=== PATIENT | male | born 1945 | race Caucasian/White ===

== ENCOUNTER 2023-10-31 11:06 | Emergency (ER) | payer MEDICARE ==
[2023-10-31 12:17] LABS: Appearance,Urine Clear (Clear); Bilirubin,Urine Negative (Negative); Blood,Urine Negative (Negative); Color,Urine Colorless; Glucose,Urine (UA) 4+ (Negative); Ketones,Urine Negative (Negative); Leukocyte Esterase,Urine Negative (Negative); Nitrite,Urine Negative (Negative); PH, Urine 5.5 (5.0-8.0); Protein,Urine Negative (Negative); Specific Gravity,Urine 1.022 (1.001-1.035); Urobilinogen,Urine <2.0 mg/dL (<2.0)
--- NOTE | 2023-10-31 12:32 | ED ---
Male Urogenital HPI - General Chief complaint: Urogenital Stated complaint: Unable to urinate Time Seen by Provider: 10/31/23 11:48 Source: patient, RN notes reviewed Mode of arrival: ambulatory Limitations: no limitations - History of Present Illness Initial comments: This is a 77-year-old male who presents to the emergency department for urinary symptoms. States that he was unable to urinate for the last couple of hours and had discomfort in his abdomen. However, when he got to the emergency department he was able to urinate to some extent. States that his urine seemed darker than usual. Patient has a history of chronic kidney disease and last had blood work done about a week ago. Denies any burning with urination. He does note that he did not sleep well last night and wonders if that may also be contributing to his symptoms. - Related Data Previous Rx's Medication Instructions Recorded Tamsulosin [Flomax] 0.4 mg PO DAILY #30 cap 10/31/23 Allergies Allergy/AdvReac Type Severity Reaction Status Date / Time Penicillins AdvReac Dyspnea Verified 10/31/23 11:45 Review of Systems ROS Statement: Those systems with pertinent positive or pertinent negative responses have been documented in the HPI. ROS Other: All systems not noted in ROS Statement are negative. Past Medical History Past Medical History: Diabetes Mellitus, Hyperlipidemia, Hypertension History of Any Multi-Drug Resistant Organisms: None Reported Past Surgical History: No Surgical Hx Reported Smoking Status: Former smoker Past Alcohol Use History: None Reported Past Drug Use History: None Reported General Exam Limitations: no limitations General appearance: alert, in no apparent distress Head exam: Present: atraumatic, normocephalic, normal inspection Respiratory exam: Present: normal lung sounds bilaterally. Absent: respiratory distress, wheezes, rales, rhonchi, stridor Cardiovascular Exam: Present: regular rate, normal rhythm, normal heart sounds. Absent: systolic murmur, diastolic murmur, rubs, gallop, clicks GI/Abdominal exam: Present: soft, normal bowel sounds. Absent: distended, tenderness, guarding, rebound, rigid Back exam: Absent: CVA tenderness (R), CVA tenderness (L) Neurological exam: Present: alert, oriented X3, CN II-XII intact Psychiatric exam: Present: normal affect, normal mood Skin exam: Present: warm, dry, intact, normal color. Absent: rash Course Vital Signs 10/31/23 10/31/23 11:40 13:43 Temperature 97.7 F 98.1 F Pulse Rate 69 68 Respiratory 16 18 Rate Blood Pressure 106/62 111/78 O2 Sat by Pulse 97 98 Oximetry Medical Decision Making - Medical Decision Making This is a 77 year old male who presents to the emergency department for urinary retention. Was pt. sent in by a medical professional or institution? @ -No Did you speak to anyone other than the patient for history? @ -No Did you review nursing and triage notes? @ -Yes, and I agree, it is accurate with regards to the patient's symptoms. Were old charts reviewed? @ -No Differential Diagnosis? @ -Differential Urinary Retention: UTI, BPH, ureteral calculus, this is not meant to be an all-inclusive list. EKG interpreted by me (3pts min.)? @ -Not obtained X-rays interpreted by me (1pt min.)? @ -Not obtained CT interpreted by me (1pt min.)? @ -Not obtained U/S interpreted by me (1pt. min.)? @ -Not obtained What testing was considered but not performed? (CT, X-rays, U/S, labs)? Why? @ -None What meds were considered but not given? Why? @ -None Did you discuss the management of the patient with other professionals? @ -No Did you reconcile home meds? @ -No Was smoking cessation discussed for >3mins.? @ -No Was critical care preformed (if so, how long)? @ -No Were there social determinants of health that impacted care today? How? (Homelessness, low income, unemployed, alcoholism, drug addiction, transportation, low edu. Level, literacy, decrease access to med. care, assisted, rehab)? @ -No Was there de-escalation of care discussed even if they declined? (Discuss DNR or withdrawal of care, Hospice)? @ -No What co-morbidities impacted this encounter? (DM, HTN, Smoking, COPD, CAD, Cancer, CVA, Hep., AIDS, mental health diagnosis, sleep apnea, morbid obesity)? @ -CKD, DM Was patient admitted / discharged? @ -Discharged. After the patient had gone to the emergency department, he was able to urinate on his own without difficulty. Urinalysis negative for signs of infection. Bladder scan performed and postvoid residual was 101 mL. Prescription for Flomax provided with dosing instructions reviewed for potential BPH component. Otherwise advised follow-up with his primary care provider. Undiagnosed new problem with uncertain prognosis? @ -None Drug Therapy requiring intensive monitoring for toxicity (Heparin, Nitro, Insulin, Cardizem)? @ -None Were any procedures done? @ -None Diagnosis/symptom? @ -Urinary difficulties Acute, or Chronic, or Acute on Chronic? @ -Acute Uncomplicated (without systemic symptoms) or Complicated (systemic symptoms)? @ -Uncomplicated Side effects of treatment? @ -None Exacerbation, Progression, or Severe Exacerbation] @ -Not applicable Poses a threat to life or bodily function? @ -No Return precautions reviewed in depth, the patient is instructed to return to the emergency department with any new, worsening, or concerning symptoms. Patient verbalized understanding. This case was discussed in detail with the attending ED physician, Dr. Quiles. Presentation, findings, and treatment plan discussed in detail as well. - Lab Data Lab Results 10/31/23 Range/Units 12:04 Urine Color Colorless Urine Appearance Clear (Clear) Urine pH 5.5 (5.0-8.0) Ur Specific [place] 1.022 (1.001-1.035) Urine Protein Negative (Negative) Urine Glucose (UA) 4+ H (Negative) Urine Ketones Negative (Negative) Urine Blood Negative (Negative) Urine Nitrite Negative (Negative) Urine Bilirubin Negative (Negative) Urine Urobilinogen <2.0 (<2.0) mg/dL Ur Leukocyte Esterase Negative (Negative) Disposition Clinical Impression: Urinary problem Disposition: HOME SELF-CARE Instructions (If sedation given, give patient instructions): Tamsulosin (By mouth) Additional Instructions: Return to the emergency department with any new, worsening, or concerning symptoms. Begin taking the Flomax once daily if you are not already taking it. Follow up with your primary care provider in 1-2 days. Prescriptions: Tamsulosin [Flomax] 0.4 mg PO DAILY #30 cap Is patient prescribed a controlled substance at d/c from ED?: No Referrals: Tamra Pedro DO [Primary Care Provider] - 1-2 days Time of Disposition: 13:34
[2023-10-31 13:45] VITALS: BP 111/78; PULSE 68; RESP 18; TEMP 98.1
== END 2023-10-31 13:45 | disposition home or self-care (01) ==
LOC: EC 11:06
DX: R33.9 Retention of urine, unspecified (principal); I12.9 Hypertensive chronic kidney disease with stage 1 through stage 4 chronic kidney disease, or unspecified chronic kidney disease; E11.22 Type 2 diabetes mellitus with diabetic chronic kidney disease; N18.9 Chronic kidney disease, unspecified; Z88.0 Allergy status to penicillin; Z87.891 Personal history of nicotine dependence
CPT/HCPCS: 51798; 81003; 99284

== ENCOUNTER 2024-02-09 09:37 | Emergency (ER) | payer MEDICARE ==
[2024-02-09 10:02] VITALS: TEMP 97.8
--- NOTE | 2024-02-09 10:34 | ED ---
Extremity Problem HPI - General Source: patient, RN notes reviewed Mode of arrival: ambulatory Limitations: no limitations <Cee Dennison - Last Filed: 02/09/24 10:33> <Isabel Joseph - Last Filed: 02/10/24 11:25> - General Chief complaint: Weakness Stated complaint: Numbness, weakness Time Seen by Provider: 02/09/24 10:05 - History of Present Illness Initial comments: Quick Note: This is an 78-year-old male who presents to the emergency department for right arm pain. States that it started 3 weeks ago. Denies any injuries. States that the pain is in the right biceps area. Pain does not radiate. States that because of the pain, it makes him feel weak and he has difficulty moving his arm. He has tried taking Tylenol without relief in symptoms. (Cee Dennison) 78-year-old male presents emergency department company by his with chief complaint of right arm pain that is intermittent in nature and has been ongoing since the beginning of November. He denies any known injuries or trauma to the area. He experiences migratory joint pain with some days having hip, knee, wrist, shoulder pain that is both on the right and left side. Patient states that this morning his right arm pain worsened. Patient has been following with his primary care provider outpatient for this. He feels like the pain in his arm is making him weak. Has attempted to take Tylenol at home with minimal relief (Isabel Joseph) - Related Data Previous Rx's Medication Instructions Recorded Tamsulosin [Flomax] 0.4 mg PO DAILY #30 cap 10/31/23 Allergies Allergy/AdvReac Type Severity Reaction Status Date / Time Penicillins AdvReac Dyspnea Verified 02/09/24 10:02 Review of Systems ROS Other: All systems not noted in ROS Statement are negative. <Cee Dennison - Last Filed: 02/09/24 10:33> ROS Other: All systems not noted in ROS Statement are negative. <Isabel Joseph - Last Filed: 02/10/24 11:25> ROS Statement: Those systems with pertinent positive or pertinent negative responses have been documented in the HPI. Past Medical History Past Medical History: Diabetes Mellitus, Hyperlipidemia, Hypertension History of Any Multi-Drug Resistant Organisms: None Reported Past Surgical History: No Surgical Hx Reported Past Psychological History: No Psychological Hx Reported Smoking Status: Former smoker Past Alcohol Use History: None Reported Past Drug Use History: None Reported <Cee Dennison - Last Filed: 02/09/24 10:33> General Exam Limitations: no limitations <Cee Dennison - Last Filed: 02/09/24 10:33> General appearance: alert, in no apparent distress Head exam: Present: atraumatic, normocephalic, normal inspection Eye exam: Present: normal appearance, PERRL, EOMI. Absent: scleral icterus, conjunctival injection, periorbital swelling ENT exam: Present: normal exam, mucous membranes moist Neck exam: Present: normal inspection. Absent: tenderness, meningismus, lymphadenopathy Respiratory exam: Present: normal lung sounds bilaterally. Absent: respiratory distress, wheezes, rales, rhonchi, stridor Cardiovascular Exam: Present: regular rate, normal rhythm, normal heart sounds. Absent: systolic murmur, diastolic murmur, rubs, gallop, clicks GI/Abdominal exam: Present: soft, normal bowel sounds. Absent: distended, tenderness, guarding, rebound, rigid Right Upper Arm exam: Present: normal inspection, full ROM, tenderness (anterior arm). Absent: swelling, abrasion, laceration, ecchymosis, crepidus, dislocation Vascular: Present: normal capillary refill, radial pulse (2+). Absent: vascular compromise Back exam: Present: normal inspection Neurological exam: Present: alert, oriented X3, CN II-XII intact <Isabel Joseph - Last Filed: 02/10/24 11:25> - General Exam Comments Initial Comments: Visual Physical Exam Vital signs reviewed General: Well-appearing, nontoxic, no acute distress. Head: Normocephalic, atraumatic Eyes: PERRLA, EOMI ENT: Airway patent Chest: Nonlabored breathing Skin: No visual rash, normal skin tone Neuro: Alert and oriented 3 Musculoskeletal: No gross abnormalities (Cee Dennison) Course Vital Signs 02/09/24 02/09/24 02/09/24 09:57 11:30 12:36 Temperature 97.8 F Pulse Rate 78 75 78 Respiratory 18 16 16 Rate Blood Pressure 121/67 158/76 163/82 O2 Sat by Pulse 98 99 99 Oximetry 02/09/24 12:51 Temperature Pulse Rate 78 Respiratory 16 Rate Blood Pressure 150/73 O2 Sat by Pulse 98 Oximetry Medical Decision Making <Cee Dennison - Last Filed: 02/09/24 10:33> <Isabel Joseph - Last Filed: 02/10/24 11:25> - Medical Decision Making I performed the QuickNote portion of this chart. Signed Cee Dennison PA-C. (Cee Dennison) Was pt. sent in by a medical professional or institution ([facility], PEN AND PENCIL REPAIRER, urgent care, hospital, or group home...) When possible be specific @ -No Did you speak to anyone other than the patient for history (EMS, parent, family, police, friend...)? What history was obtained from this source @ -I spoke to the patient's at bedside states the patient has been evaluated outpatient by his primary care provider. states that "sometimes you just need to come into the ER to figure out what is going on" Did you review nursing and triage notes (agree or disagree)? Why? @ -I reviewed and agree with nursing and triage notes Were old charts reviewed (outside hosp., previous admission, EMS record, old EKG, old radiological studies, urgent care reports/EKG's, group home records)? Report findings @ -No old charts were reviewed Differential Diagnosis (chest pain, altered mental status, abdominal pain women, abdominal pain men, vaginal bleeding, weakness, fever, dyspnea, syncope, headache, dizziness, GI bleed, back pain, seizure, CVA, palpatations, mental health, musculoskeletal)? @ -Differential Musculoskeletal Muscular strain, contusion, ligament sprain, fracture, arthritis, septic arthritis, bursitis, cellulitis, muscle spasm, nerve compression, DVT, arterial occlusion, herpes zoster, electrolyte abnormality, tumor.... This is not meant to be in all inclusive list EKG interpreted by me (3pts min.). @ -None X-rays interpreted by me (1pt min.). @ X-ray of the right humerus negative for acute osseous abnormality. CT interpreted by me (1pt min.). @ -None done U/S interpreted by me (1pt. min.). @ -None done What testing was considered but not performed or refused? (CT, X-rays, U/S, labs)? Why? @ -None What meds were considered but not given or refused? Why? @ -None Did you discuss the management of the patient with other professionals (professionals i.e. , PA, PEN AND PENCIL REPAIRER, lab, RT, psych nurse, social human services assistants, cobol engineer, teacher, chief sustainability officer, housing case manager)? Give summary @ -No Was smoking cessation discussed for >3mins.? @ -No Was critical care preformed (if so, how long)? @ -No Were there social determinants of health that impacted care today? How? (Homelessness, low income, unemployed, alcoholism, drug addiction, transportation, low edu. Level, literacy, decrease access to med. care, penitentiary, rehab)? @ -No Was there de-escalation of care discussed even if they declined (Discuss DNR or withdrawal of care, Hospice)? DNR status @ -No What co-morbidities impacted this encounter? (DM, HTN, Smoking, COPD, CAD, Cancer, CVA, ARF, Chemo, Hep., AIDS, mental health diagnosis, sleep apnea, morbid obesity)? @ -None Was patient admitted / discharged? Hospital course, mention meds given and route, prescriptions, significant lab abnormalities, going to OR and other pertinent info. @ -Discharged. 78-year-old male with right arm pain. Patient was originally evaluated as a quick note where x-rays were ordered. On my evaluation of the patient vitals are stable and he is resting comfortably. Patient has pain to palpation over the right bicep with no obvious deformities, ecchymosis, muscle wasting. Patient has passive range of motion and states that active range of motion elicits pain to the right bicep. Neurological exam no acute deficits. Patient's x-ray is negative for acute process. Patient is provided with pain medication and instructed to follow-up outpatient with primary care provider as he has had multiple appointment scheduled to determine causative factor of migratory joint pain. All questions answered at bedside and strict return parameters dominik with the patient and the patient's and they verbalized understanding. Case discussed with Dr. Muniz Undiagnosed new problem with uncertain prognosis? @ -No Drug Therapy requiring intensive monitoring for toxicity (Heparin, Nitro, Insulin, Cardizem)? @ -No Were any procedures done? @ -No Diagnosis/symptom? @ -Arm pain Acute, or Chronic, or Acute on Chronic? @ -Acute Uncomplicated (without systemic symptoms) or Complicated (systemic symptoms)? @ -uncomplicated Side effects of treatment? @ -No Exacerbation, Progression, or Severe Exacerbation? @ -No Poses a threat to life or bodily function? How? (Chest pain, [place], [place], pneumonia, PE, COPD, DKA, ARF, appy, cholecystitis, CVA, Diverticulitis, Homicidal, Suicidal, threat to staff... and all critical care pts) @ -No (Isabel Joseph) Disposition <Cee Dennison - Last Filed: 02/09/24 10:33> Is patient prescribed a controlled substance at d/c from ED?: No Time of Disposition: 12:17 <Isabel Joseph - Last Filed: 02/10/24 11:25> Clinical Impression: Right arm pain Disposition: HOME SELF-CARE Condition: Good Instructions (If sedation given, give patient instructions): Paresthesia (ED), Arm Pain (ED) Additional Instructions: Return to the emergency department any new or worsening symptoms. Take pain medication as needed. Continue to wear sling. Recommend to continue follow-up outpatient with primary care provider for further evaluation. Referrals: Tamra Pedro DO [Primary Care Provider] - 1-2 days
[2024-02-09 11:32] VITALS: RESP 16
--- NOTE | 2024-02-09 11:55 | XR ---
EXAMINATION TYPE: XR humerus 2 views RT DATE OF EXAM: 02/09/2024 COMPARISON: NONE HISTORY: 78-year-old male right arm pain and weakness TECHNIQUE: 2 views FINDINGS: No acute fracture is seen. No elbow joint effusion. No periostitis or osteolysis. IMPRESSION: No acute osseous abnormality seen. [facility] Kika Saul, , 02/09/2024 11:52 AM
[2024-02-09 12:37] VITALS: PULSE 78
[2024-02-09] MEDS: MORPHINE SULFATE 4 MG/ML SYRINGE IM STA (12:40)
[2024-02-09] MEDS: ACET/COD 300 MG/30 MG STARTER PACK 6 TAB BTL PO STA (12:42)
[2024-02-09 12:55] VITALS: BP 150/73
== END 2024-02-09 12:58 | disposition home or self-care (01) ==
LOC: EC 09:37
DX: M79.601 Pain in right arm (principal)
CPT/HCPCS: 96372; 99283